=== PATIENT | female | born 1945 | race Caucasian/White ===

== ENCOUNTER → 2019-04-14 | Outpatient (CLI) | payer MEDICARE ==
[2019-04-14 09:29] LABS: INR 0.82; PARTIAL THROMBOPLASTIN TIME 21.7 seconds (23.8-35.5); PROTHROMBIN TIME 11.8 seconds (11.9-14.5)
== END ==
LOC: CT 08:22
PROVIDERS: ATTEND Internal Medicine Critical Care Medicine
DX: R91.8 Other nonspecific abnormal finding of lung field (principal)
CPT/HCPCS: 36415; 85049; 85610; 85730

== ENCOUNTER → 2019-06-23 | Outpatient (CLI) | payer MEDICARE ==
[~2019-06-23] MED LIST: FENTANYL CITRATE/PF 100MCG/2 ML INJ ONE; LIDOCAINE HCL 1% LOCAL INJ 20 ML VIAL ONE; MIDAZOLAM HCL 2 MG/2 ML VIAL ONE; SODIUM CHLORIDE 0.9% 250ML 250 ML ONE
[2019-06-23 11:24] LABS: BASOPHILS # (AUTO) 0.1 (0.0-0.1); BASOPHILS % 0.6 % (0.0-1.0); EOSINOPHILS # (AUTO) 0.4 (0.0-0.4); EOSINOPHILS % 3.7 % (0.0-6.0); HEMATOCRIT 44.1 % (34.2-44.1); HEMOGLOBIN 13.7 g/dL (12.0-16.0); LYMPHOCYTES # (AUTO) 2.3 (1.0-3.2); LYMPHOCYTES % 23.5 % (18.0-39.1); MEAN CORPUSCULAR HEMOGLOBIN 28.1 pg (28-32); MEAN CORPUSCULAR HGB CONC 31.1 g/dL (31-35); MEAN CORPUSCULAR VOLUME 90.6 fL (81-99); MONOCYTES # (AUTO) 0.7 (0.2-0.8); MONOCYTES % 7.4 % (4.4-11.3); NEUTROPHILS # (AUTO) 6.2 (2.1-6.9); NEUTROPHILS % 64.2 % (38.7-80.0); PLATELET COUNT 421 x10e3/uL (140-360); RED BLOOD COUNT 4.87 x10e6/uL (3.6-5.1); RED CELL DISTRIBUTION WIDTH 16.1 % (11.7-14.4)
[2019-06-23 12:02] LABS: INR 0.87; PARTIAL THROMBOPLASTIN TIME 27.8 seconds (23.8-35.5); PROTHROMBIN TIME 12.3 seconds (11.9-14.5)
--- NOTE | 2019-06-23 14:18 | Diagnostic Imaging Report ---
EXAM: CT Chest WITHOUT intravenous contrast 06/23/2019 12:00 AM INDICATION: Left upper lobe pulmonary nodule COMPARISON: Outside PET/CT of 03/13/2019 TECHNIQUE: The chest was scanned utilizing a multidetector helical scanner in anticipation of left upper lobe lung biopsy from the lung apex through the level of the adrenal glands without administration of IV contrast. Routine protocol was performed. Coronal and sagittal reformats were obtained. IV CONTRAST: None RADIATION DOSE: Total DLP: 1006.2 mGy*cm. Dose modulation, iterative reconstruction, and/or weight based adjustment of the mA/kV was utilized to reduce the radiation dose to as low as reasonably achievable. COMPLICATIONS: None FINDINGS: Pulmonary CT scan of the chest in anticipation of left upper lobe lung biopsy demonstrates interval decrease in size and nodularity of the FDG avid left upper lobe lesion previously seen on outside PET/CT of 03/13/2019. This area appears more in keeping with linear scarring at this point. Previously seen groundglass opacities at the right middle lobe also appear decreased. Unchanged background of severe centrilobular emphysema. No pleural effusion or pneumothorax. The main pulmonary artery is enlarged to 3.7 cm, possibly reflecting underlying pulmonary artery hypertension. Unchanged mild cardiomegaly. Atherosclerotic calcifications involve the coronary arteries, aorta, and proximal great vessels. IMPRESSION: Interval decrease in left upper lobe lung lesion seen on prior PET/CT of 03/13/2019. Findings were discussed with Dr. Jon following review of the preprocedural scan and decision was made to defer biopsy in favor of short interval ([address]) chest CT follow-up. Signed by: Ramiro Manzano MD on 06/23/2019 2:15 PM
== END ==
LOC: CT 09:40
PROVIDERS: ATTEND Internal Medicine Critical Care Medicine
DX: R91.8 Other nonspecific abnormal finding of lung field (principal); I51.7 Cardiomegaly; I70.8 Atherosclerosis of other arteries
CPT/HCPCS: 36415; 71250; 85025; 85610; 85730; J2001; J7050; J2250; J3010

== ENCOUNTER → 2020-08-19 | Day surgery (SDC) | payer MEDICARE ==
[2020-08-16 13:42] LABS: BASOPHILS # (AUTO) 0.1 (0.0-0.1); BASOPHILS % 0.7 % (0.0-1.0); EOSINOPHILS # (AUTO) 0.3 (0.0-0.4); EOSINOPHILS % 3.6 % (0.0-6.0); HEMOGLOBIN 12.5 g/dL (12.0-16.0); LYMPHOCYTES # (AUTO) 2.1 (1.0-3.2); LYMPHOCYTES % 22.8 % (18.0-39.1); MEAN CORPUSCULAR HEMOGLOBIN 27.5 pg (28-32); MEAN CORPUSCULAR HGB CONC 30.5 g/dL (31-35); MEAN CORPUSCULAR VOLUME 90.1 fL (81-99); MONOCYTES # (AUTO) 0.7 (0.2-0.8); MONOCYTES % 7.5 % (4.4-11.3); NEUTROPHILS # (AUTO) 5.8 (2.1-6.9); PLATELET COUNT 431 x10e3/uL (140-360); RED BLOOD COUNT 4.55 x10e6/uL (3.6-5.1); RED CELL DISTRIBUTION WIDTH 14.8 % (11.7-14.4)
[2020-08-16 13:56] LABS: INR 0.93
[2020-08-16 14:02] LABS: ALBUMIN 3.6 g/dL (3.5-5.0); ALBUMIN/GLOBULIN RATIO 1.1 (0.8-2.0); ANION GAP 15.1 mmol/L (8-16); CALCIUM 8.6 mg/dL (8.4-10.2); CREATININE, SERUM 1.15 mg/dL (0.57-1.11); POTASSIUM 4.1 mmol/L (3.5-5.1)
[~2020-08-19] VITALS: Ht 170.2 cm; Wt 90.7 kg
[2020-08-19] VITALS (7 sets, daily range): BP systolic 122–184; BP diastolic 63–92
[~2020-08-19] MED LIST changes: +AMLODIPINE BESY10 MG PO; +ASPIRIN EC81 MG PO; +CEFAZOLIN SOD 2 GM/D5W 50ML 50 ML IV ONE; +DIPHENHYDRAMINE HCL INJ 50 MG/ML VIAL ONE; +GENTAMICIN SULFATE 40 MG/ML 2 ML VIAL ONE; -LIDOCAINE HCL 1% LOCAL INJ 20 ML VIAL ONE; +LIDOCAINE HCL 2% LOCAL 20 ML VIAL ONE; +LISINOPRIL10 MG PO; +METOPROLOL TARTRATE INJ 1 MG/ML VIAL ONE; +PACERONE100 MG PO; +PROAIR HFA INH8.5 GM INH; +SODIUM CHLORIDE 0.9% 1000ML 2,000 ML ONE; -SODIUM CHLORIDE 0.9% 250ML 250 ML ONE; +SODIUM CHLORIDE 0.9% 500ML 500 ML ONE; +TRELEGY ELLIPT1 EACH INH; +VANCOMYCIN 1GM/NS 250 ML 500 ML ONE; +VITAMIN D3 PO
== END | disposition home or self-care (01) ==
LOC: CATH LAB 10:25 → EDSTATUS 12:30
PROVIDERS: ATTEND Internal Medicine
DX: I49.5 Sick sinus syndrome (principal); I47.1 Supraventricular tachycardia; I42.9 Cardiomyopathy, unspecified; I10 Essential (primary) hypertension; J44.9 Chronic obstructive pulmonary disease, unspecified; Z88.0 Allergy status to penicillin; Z88.8 Allergy status to other drugs, medicaments and biological substances; Z01.812 Encounter for preprocedural laboratory examination; Z20.822 Contact with and (suspected) exposure to COVID-19; Z99.81 Dependence on supplemental oxygen; Z68.33 Body mass index [BMI] 33.0-33.9, adult; Z87.891 Personal history of nicotine dependence; Z82.49 Family history of ischemic heart disease and other diseases of the circulatory system
CPT/HCPCS: 33208; 36415; 71045; 80053; 85025; 85610; C1769; C1785; C1898 ×2; J0690; J1200; J1580; J2001; J2250; J3010; J3370; J7030; J7040; U0002; 99152; 99153

== ENCOUNTER → 2024-10-03 | Outpatient (REF) | payer MEDICARE ==
[~2024-10-03] MED LIST changes: -CEFAZOLIN SOD 2 GM/D5W 50ML 50 ML IV ONE; -DIPHENHYDRAMINE HCL INJ 50 MG/ML VIAL ONE; -FENTANYL CITRATE/PF 100MCG/2 ML INJ ONE; -GENTAMICIN SULFATE 40 MG/ML 2 ML VIAL ONE; -LIDOCAINE HCL 2% LOCAL 20 ML VIAL ONE; -METOPROLOL TARTRATE INJ 1 MG/ML VIAL ONE; -MIDAZOLAM HCL 2 MG/2 ML VIAL ONE; -SODIUM CHLORIDE 0.9% 1000ML 2,000 ML ONE; -SODIUM CHLORIDE 0.9% 500ML 500 ML ONE; -VANCOMYCIN 1GM/NS 250 ML 500 ML ONE
== END ==
LOC: CT 13:42
PROVIDERS: ATTEND Internal Medicine Critical Care Medicine
DX: R91.8 Other nonspecific abnormal finding of lung field (principal)
CPT/HCPCS: 71250